=== PATIENT | female | born 1990 | race Caucasian/White ===

== ENCOUNTER 2023-06-18 14:17 | Inpatient (IN) | payer OTHER, SELFPAY ==
[2023-06-18 14:27] VITALS: BMI 34.5
[2023-06-18 15:06] LABS: % Basophils 0.3 % (0-2); % Immature Granulocytes 0.3 % (0-0.5); % Lymphocytes 17.4 % (20.5-51.1); % Monocytes 5.8 % (1.7-9.3); % Neutrophils 73.2 % (42.2-75.2); Absolute Eosinophils 0.3 10^3/uL (0-0.7); Absolute Lymphocytes 1.7 10^3/uL (1.2-3.4); Absolute Monocytes 0.6 10^3/uL (0.1-0.6); Hematocrit 29.3 % (37.0-47.0); Hemoglobin 10.5 g/dL (12.0-16.0); Mean Corp Hgb Conc. 35.8 g/dL (33.0-37.0); Mean Corpuscular Hgb 31.3 pg (27.0-31.0); Mean Corpuscular Volume 87.5 fL (81.0-99.0); Mean Platelet Volume 12.1 fL (7.4-10.4); Nucleated Red Blood Cells % 0 %; Platelet Count 174 10^3/uL (130-400); Red Blood Cell Count 3.35 10^6/uL (4.20-5.40); Red Cell Dist. Width 14.4 % (11.5-14.5); White Blood Cell Count 9.5 10^3/uL (4.8-10.8)
[2023-06-18 15:24] LABS: ALT (SGPT) 14 U/L (0-35); AST (SGOT) 20 U/L (14-36); Albumin 3.5 g/dl (3.5-5.0); Alkaline Phosphatase 158 U/L (38-126); Blood Urea Nitrogen 12 mg/dl (7-17); Calcium 9.1 mg/dl (8.4-10.2); Carbon Dioxide 16 mmol/L (22-30); Chloride 106 mmol/L (98-107); Estimated Creatinine Clearance > 125 ml/min; Glucose 92 mg/dl (70-99); Potassium 4.4 mmol/L (3.5-5.1); Sodium 129 mmol/L (135-145); Total Bilirubin 0.4 mg/dl (0.2-1.3); Total Protein 6.2 g/dl (6.3-8.2); eGFR > 60.00
[2023-06-18 15:31] VITALS: BP 140/90
[2023-06-18 16:17] LABS: Protein/creatinine Ratio 0.1; Urine Protein 10 mg/dl
[2023-06-18] MEDS: CYTOTEC 50 MICROGRAM VAG (16:43)
[2023-06-18] MEDS: CYTOTEC 25 MICROGRAM PO (21:01)
[2023-06-18] MEDS: LR 1000 IV (22:50)
[2023-06-19] MEDS: SYNTHROID 150 MCG PO (06:57)
[2023-06-19] MEDS: PITOCIN 30 UNITS/NSS 500 ML IV ×2 (08:59→17:40)
[2023-06-19] MEDS: LR 1000 IV (14:03)
[2023-06-19] MEDS: SUBLIMAZE 100 MCG EPIDURAL (14:08)
[2023-06-19] MEDS: FENTANYL/BUPIVACAINE 100 EPIDURAL (14:09)
[2023-06-19] MEDS: MOTRIN 600 MG PO (22:12)
[2023-06-20] MEDS: MOTRIN 600 MG PO ×3 (04:43→18:34)
[2023-06-20] MEDS: SYNTHROID 150 MCG PO (04:43)
[2023-06-20 05:20] LABS: Hematocrit 29.2 % (37.0-47.0); Hemoglobin 10.2 g/dL (12.0-16.0)
[2023-06-20] MEDS: PRENATAL PLUS 1 TABLET PO (08:38)
[2023-06-20] MEDS: FEOSOL 325 MG PO ×2 (08:39→20:33)
[2023-06-20] MEDS: TYLENOL 650 MG PO ×2 (12:14→18:34)
[2023-06-20 23:16] LABS: Hematocrit 30.4 % (37.0-47.0); Hemoglobin 10.1 g/dL (12.0-16.0); Mean Corp Hgb Conc. 33.2 g/dL (33.0-37.0); Mean Corpuscular Hgb 30.7 pg (27.0-31.0); Mean Corpuscular Volume 92.4 fL (81.0-99.0); Platelet Count 150 10^3/uL (130-400); Red Blood Cell Count 3.29 10^6/uL (4.20-5.40); Red Cell Dist. Width 14.8 % (11.5-14.5); White Blood Cell Count 7.9 10^3/uL (4.8-10.8)
[2023-06-20] MEDS: LR 1000 IV (23:16)
[2023-06-20 23:30] LABS: ALT (SGPT) 18 U/L (0-35); AST (SGOT) 33 U/L (14-36); Albumin 3.2 g/dl (3.5-5.0); Alkaline Phosphatase 128 U/L (38-126); Blood Urea Nitrogen 11 mg/dl (7-17); Calcium 8.7 mg/dl (8.4-10.2); Carbon Dioxide 20 mmol/L (22-30); Chloride 111 mmol/L (98-107); Estimated Creatinine Clearance > 125 ml/min; Glucose 111 mg/dl (70-99); Sodium 137 mmol/L (135-145); Total Bilirubin 0.3 mg/dl (0.2-1.3); eGFR > 60.00
[2023-06-21] MEDS: SYNTHROID 175 MCG PO (06:26)
--- NOTE | 2023-06-21 09:43 | CM ---
CM reviewed pt with nursing
Plan for dc today
No CM or discharge needs noted
CM will be available for planning as needed
[2023-06-21] MEDS: PRENATAL PLUS 1 TABLET PO (10:15)
[2023-06-21] MEDS: MOTRIN 600 MG PO (10:16)
[2023-06-21] MEDS: FEOSOL 325 MG PO ×2 (10:16)
[2023-06-22 13:41] LABS: Syphilis/T. pallidum Ab Reflex Negative (Negative)
== END 2023-06-21 11:49 | disposition home or self-care (01) | DRG 807 ==
LOC: LDRP 14:17
PROVIDERS: Obstetrics & Gynecology; ADMITTING PHYSICIAN Obstetrics & Gynecology; FAMILY PHYSICIAN Physician Assistant Medical; OTHER PHYSICIAN Obstetrics & Gynecology
PROC: 3E033VJ Introduction of Other Hormone into Peripheral Vein, Percutaneous Approach (ICD-10-PCS; 2023-06-18)
PROC: 0KQM0ZZ Repair Perineum Muscle, Open Approach (ICD-10-PCS; 2023-06-19)
PROC: 10E0XZZ Delivery of Products of Conception, External Approach (ICD-10-PCS; 2023-06-19)
DX: O14.04 Mild to moderate pre-eclampsia, complicating childbirth (principal); Z37.0 Single live birth; O70.1 Second degree perineal laceration during delivery; Z3A.39 39 weeks gestation of pregnancy
CPT/HCPCS: 36415; 80053; 82570; 84156; 85014; 85018; 85025; 85027; 86780; 86850; 86900; 86901

== ENCOUNTER 2023-06-28 11:31 | Inpatient (IN) | payer OTHER, SELFPAY ==
[2023-06-28 11:36] VITALS: BP 152/87; BMI 34.5
[2023-06-28 11:57] LABS: % Basophils 0.5 % (0-2); % Eosinophils 4.3 % (0-6); % Immature Granulocytes 0.4 % (0-0.5); % Lymphocytes 19.6 % (20.5-51.1); % Monocytes 6.2 % (1.7-9.3); Absolute Eosinophils 0.3 10^3/uL (0-0.7); Absolute Lymphocytes 1.6 10^3/uL (1.2-3.4); Absolute Monocytes 0.5 10^3/uL (0.1-0.6); Absolute Neutrophils 5.5 10^3/uL (1.4-6.5); Hematocrit 35.1 % (37.0-47.0); Hemoglobin 12.2 g/dL (12.0-16.0); Mean Corp Hgb Conc. 34.8 g/dL (33.0-37.0); Mean Corpuscular Hgb 30.3 pg (27.0-31.0); Mean Corpuscular Volume 87.1 fL (81.0-99.0); Mean Platelet Volume 10.6 fL (7.4-10.4); Nucleated Red Blood Cells % 0 %; Platelet Count 305 10^3/uL (130-400); Red Blood Cell Count 4.03 10^6/uL (4.20-5.40); Red Cell Dist. Width 13.9 % (11.5-14.5)
[2023-06-28] MEDS: LR 1000 IV (12:07)
[2023-06-28 12:09] LABS: ALT (SGPT) 53 U/L (0-35); AST (SGOT) 41 U/L (14-36); Albumin 4.3 g/dl (3.5-5.0); Alkaline Phosphatase 104 U/L (38-126); Blood Urea Nitrogen 14 mg/dl (7-17); Calcium 9.2 mg/dl (8.4-10.2); Carbon Dioxide 20 mmol/L (22-30); Chloride 108 mmol/L (98-107); Estimated Creatinine Clearance > 125 ml/min; Glucose 91 mg/dl (70-99); Potassium 4.5 mmol/L (3.5-5.1); Sodium 137 mmol/L (135-145); Total Bilirubin 0.6 mg/dl (0.2-1.3); Total Protein 7.4 g/dl (6.3-8.2); eGFR > 60.00
[2023-06-28] MEDS: MAGNESIUM SULFATE 100 IV (12:10)
[2023-06-28 12:28] LABS: Protein/creatinine Ratio 0.4; Urine Protein 13 mg/dl
[2023-06-28] MEDS: MAGNESIUM SULFATE 40 GRAM 1000 IV (12:30)
[2023-06-28] MEDS: MOTRIN 600 MG PO (12:38)
[2023-06-28] MEDS: TRANDATE 20 MG IV (13:21)
[2023-06-28] MEDS: LR IV (13:23)
[2023-06-28] MEDS: TYLENOL 1000 MG PO (13:29)
[2023-06-28] MEDS: TRANDATE 200 MG PO (20:05)
[2023-06-29] MEDS: LR 1000 IV (02:01)
[2023-06-29] MEDS: TRANDATE 200 MG PO ×2 (08:43→19:51)
[2023-06-29] MEDS: MAGNESIUM SULFATE 40 GRAM 1000 IV (09:17)
[2023-06-29] MEDS: SYNTHROID 175 MCG PO (09:22)
[2023-06-29 20:12] LABS: ALT (SGPT) 44 U/L (0-35); AST (SGOT) 30 U/L (14-36)
--- NOTE | 2023-06-30 04:09 | DOWNTIME ---
There was a [email or web address]er Downtime on 06/30/2023 from 0111 to 06/30/2023 at 0405. Downtime documentation of patient's care, including medication administrations, has been reconciled in the electronic record per guidelines. Refer to the
patient's paper chart under the miscellaneous tab to see printed paper medication records and downtime forms.
[2023-06-30] MEDS: TRANDATE 200 MG PO (08:19)
[2023-06-30] MEDS: PROCARDIA XL (EXTENDED RELEASE) 30 MG PO (11:22)
[2023-06-30] MEDS: SYNTHROID 175 MCG PO (13:52)
== END 2023-06-30 18:01 | disposition home or self-care (01) | DRG 776 ==
LOC: LDRP 11:31
PROVIDERS: Obstetrics & Gynecology; ADMITTING PHYSICIAN Obstetrics & Gynecology
DX: O14.15 Severe pre-eclampsia, complicating the puerperium (principal)
CPT/HCPCS: 80053; 82570; 84156; 84450; 84460; 85025